=== PATIENT | male | born 1940 | race Caucasian/White ===

== ENCOUNTER 2018-07-04 05:30 | Day surgery (SDC) | payer OTHER ==
[~2018-07-04 05:30] MED LIST: AMLO10TA6 PO; INDO25CA16 PO; WARF3TAB59 PO; ZOLP10TA6 PO
[2018-07-04 05:41] VITALS: BP 147/74
[2018-07-04 06:04] LABS: INR 1.03 (0.85-1.15); PROTHROMBIN TIME 10.8 SEC (9.6-11.6)
[2018-07-04] MEDS ORDERED: SODIUM CHLORIDE 0.9% 1000ML 1,000 ML IV ONE (06:34)
[2018-07-04] MEDS ORDERED: PROPOFOL 10 MG/ML 20ML VIAL IV ONE (07:05)
[2018-07-04 07:21] VITALS: BP 95/51
[2018-07-04 07:26] VITALS: BP 98/57
[2018-07-04 07:32] VITALS: BP 112/60
[2018-07-04 07:36] VITALS: BP 120/62
== END 2018-07-04 07:55 | disposition home or self-care (01) ==
LOC: DAH 05:30
PROVIDERS: ATTEND Internal Medicine Gastroenterology
DX: Z12.11 Encounter for screening for malignant neoplasm of colon (principal); D12.0 Benign neoplasm of cecum; K63.89 Other specified diseases of intestine; I82.729 Chronic embolism and thrombosis of deep veins of unspecified upper extremity; I10 Essential (primary) hypertension; M19.90 Unspecified osteoarthritis, unspecified site; M02.30 Reiter's disease, unspecified site; Z79.01 Long term (current) use of anticoagulants; Z79.899 Other long term (current) drug therapy; Z96.659 Presence of unspecified artificial knee joint
CPT/HCPCS: 36415; 45380; 85610; 88305; 93005; A4606; J2704; J7030; 43239